=== PATIENT | male | born 1960 | race Caucasian/White ===

== ENCOUNTER 2020-06-08 01:10 | Emergency (ER) | payer BC, SELFPAY ==
[2020-06-08] VITALS (8 sets, daily range): BP systolic 104–153; BP diastolic 62–80; PULSE 80–100; RESP 16; TEMP 36.5; O2SAT 91–99
--- NOTE | ~2020-06-08 | CT_ITS ---
EXAMINATION: CT abdomen pelvis w con DATE: 06/08/2020 02:40 INDICATION: Epigastric abdominal pain. TECHNIQUE: Computed tomography (CT) of the abdomen and pelvis was performed with 100 mL Omnipaque 350 intravenous contrast. Automated exposure control and iterative reconstruction technique were employe d. The dose-length product was 743.49 mGy-cm. COMPARISON: CT abdomen and pelvis 02/14/2012 FINDINGS: The visualized portions of the lung bases demonstrate mild atelectasis. No pleural effusion . The heart size is normal. No pericardial effusion. There is diffuse hepatic steatosis. The gallblad rl and spleen are normal. There is fat stranding around the uncinate process of the pancreas, consis tent with acute interstitial pancreatitis. The adrenal glands are normal. There are cysts in the kidn eys measuring up to 4.0 cm on the left. There are 1 mm and 3 mm stones in right kidney. There are arun roximately 7 stones in left kidney measuring up to 7 mm. There are no dilated loops of bowel. The arun endix is normal. There are no pathologically enlarged lymph nodes. There is no free intraperitoneal f luid. 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 There is mild thoracolumbar spondylosis. IMPRESSION: 1. Acute interstitial pancreatitis. 2. Bilateral nonobstructing kidney stones. 3. Diffuse hepatic steatosis. Reviewed, dictated and finalized at location A. DENCY PROGRAM COORDINATOR
[2020-06-08] MEDS: ONDANSETRON INJ 4 MG/2 ML VIAL IV PUSH (01:36)
[2020-06-08] MEDS: MORPHINE SULFATE (*CRX) 4 MG/ML INJ IV PUSH (01:36)
[2020-06-08 01:48] LABS: Basophils Percent Auto 0.4 % (0.2-1.2); Eosinophils Absolute Auto 0.2 K/mm3 (0-0.3); Eosinophils Percent Auto 1.5 % (0-4.4); Hematocrit 41.7 % (42.0-52.0); Hemoglobin 14.4 g/dL (14.0-18.0); Immature Granulocyte Absolute 0.03 K/mm3 (0.00-0.031); Immature Granulocyte Percent A 0.3 % (0-0.5); Lymphocytes Absolute Auto 1.35 K/mm3 (0.9-3.2); Lymphocytes Percent Auto 12.3 % (18.3-44.2); Mean Corpuscular HGB Conc 34.5 g/dl (32-36); Mean Corpuscular Hemoglobin 32.5 pg (26-34); Mean Corpuscular Volume 94.1 fl (80-100); Mean Platelet Volume 10.4 fl (7.4-10.4); Monocytes Percent Auto 8.7 % (2.6-8.5); Neutrophils Absolute Auto 8.4 K/mm3 (1.3-6.7); Neutrophils Percent Auto 76.8 % (45.5-73.1); Platelet Count Result 214 k/mm3 (150-375); Red Blood Count 4.43 M/mm3 (4.6-6.20); Red Cell Distribution Width 12.1 % (11.5-14.5)
[2020-06-08 01:59] LABS: Alanine Aminotransferase 33 U/L (4-50); Albumin Level 4.3 g/dL (3.5-5.1); Alkaline Phosphatase 73 U/L (38-126); Anion Gap 4 mmol/L (8-16); Aspartate Amino Transferase 27 U/L (17-59); Bilirubin,Total 0.6 mg/dL (0.2-1.3); Blood Urea Nitrogen 17 mg/dL (9-20); Calcium 9.7 mg/dL (8.4-10.2); Carbon Dioxide 28 mmol/L (22-30); Chloride 104 mmol/L (98-107); Estimated CRCL calculation 89 ml/min; Estimated Glomerular Filt Rate > 60; Glucose 141 mg/dL (75-110); Lipase 348 U/L (23-300); Potassium 4.1 mmol/L (3.4-5.0); Sodium 136 mmol/L (137-145)
--- NOTE | 2020-06-08 02:28 | PC.NURSE ---
Patient being taken to CT.
[2020-06-08 02:35] LABS: Add Urine Microscopic? YES; Appearance Urine Clear (Clear); Bilirubin Urine Negative (Negative); Blood Urine Negative (Negative); Color Urine Yellow (Yellow); Glucose Urine UA Negative (Negative); Ketones Urine Negative (Negative); Leukocyte Esterase Ur Negative LEU/UL (Negative); Mucus Urine Rare /lpf; Nitrate Urine Negative (Negative); Protein Urine 1+ mg/dL (Negative); RBC Urine 0-2 /hpf (0-2); Specific Grav Ur 1.024 (1.001-1.035); Urobilinogen Urine Negative mg/dL (<2.0); WBC Urine 0-3 /hpf
--- NOTE | 2020-06-08 02:52 | ED.GENADULT ---
HPI - General Adult General Chief complaint: Abdominal Pain Stated complaint: abdominal and back pain Time Seen by Provider: 06/08/20 01:23 History of Present Illness HPI narrative: Patient is a 60-year-old male who presents ER with abdominal pain. Worsening over the last 2 days. Located in the upper abdomen and radiates throughout. No diarrhea or fevers. No previous history of diverticulitis. Reports some nausea but no vomiting. Reports he had a beer a couple days ago but no alcohol abuse. Originally denied pancreatitis per chart review shows he has had pancreatitis in the past. No alleviating factors. Reports he takes diclofenac for knee pain that is chronic. Related Data Home Medications Medication Instructions Recorded Confirmed ascorbate calcium (vitamin C) 500 mg PO DAILY 06/08/20 diclofenac sodium PO 06/08/20 lisinopril 06/08/20 [id number] 1 tablet PO DAILY 06/08/20 [Centrum Silver] oxybutynin chloride 06/08/20 rosuvastatin mg 06/08/20 sildenafil 100 mg PO DAILY 06/08/20 Allergies Allergy/AdvReac Type Severity Reaction Status Date / Time gramicidin D Allergy Mild Itching Verified 06/08/20 01:26 neomycin Allergy Mild Itching Verified 06/08/20 01:26 polymyxin B Allergy Mild Itching Verified 06/08/20 01:26 Review of Systems Review of Systems: All systems reviewed & are unremarkable except as noted in HPI and below Constitutional: Constitutional: Denies chills, Denies fever(s) and Denies weakness ENT: Denies nasal congestion and Denies sore throat Cardiovascular: Cardiovascular: Denies chest pain and Denies radiating jaw, neck or arm pain Gastrointestinal: Gastrointestinal: Reports abdominal pain, Denies diarrhea, Reports nausea and Denies vomiting PMFSH Past Medical History Medical History (Updated 06/08/20 @ 03:58 by Junaid Burden MD) H/O: hypertension Hypercholesterolemia Pancreatitis Surgical History Surgical History (Updated 06/08/20 @ 03:01 by Junaid Burden MD) History of carpal tunnel repair History of repair of rotator cuff Social History Social History (Updated 06/08/20 @ 03:01 by Junaid Burden MD) Alcohol intake: current Exam Narrative: Exam Narrative: GENERAL: Well-appearing, well-nourished, and in no acute distress. HEAD: Normocephalic, atraumatic. CHEST: Clear to auscultation. No respiratory distress. HEART: Regular rate and rhythm. Normal peripheral pulses. ABDOMEN: Soft, diffusely tender worse in the epigastrium right upper quadrant, nondistended. EXTREMITIES: Normal range of motion. No edema. SKIN: Warm, dry, no rash. NEURO: Alert and oriented x3. PSYCH: Normal mood and affect. Course Course Emergency Course: Pain resolved with morphine. Discussed diagnosis of duodenitis versus pancreatitis. Recommend cessation of alcohol. Will start on PPI. Discussed patient also stopped his diclofenac as it may be causing the duodenitis could potentiate ulcer formation or worse case perforation. Vital Signs Vital signs: Vital Signs Temperature 97.7 F 06/08/20 01:15 Pulse Rate 100 06/08/20 01:15 Respiratory Rate 16 06/08/20 01:15 Blood Pressure 153/80 H 06/08/20 01:15 Pulse Oximetry 99 06/08/20 01:15 Temperature 97.7 F 06/08/20 01:15 Pulse Rate 100 06/08/20 01:15 Respiratory Rate 16 06/08/20 01:15 Blood Pressure 113/72 06/08/20 02:02 Pulse Oximetry 91 06/08/20 02:16 Medical Decision Making Vital Signs Vital Signs: Vital Signs Temperature 97.7 F 06/08/20 01:15 Pulse Rate 100 06/08/20 01:15 Respiratory Rate 16 06/08/20 01:15 Blood Pressure 153/80 H 06/08/20 01:15 Pulse Oximetry 99 06/08/20 01:15 Temperature 97.7 F 06/08/20 01:15 Pulse Rate 100 06/08/20 01:15 Respiratory Rate 16 06/08/20 01:15 Blood Pressure 113/72 06/08/20 02:02 Pulse Oximetry 91 06/08/20 02:16 Lab Data Result diagrams: 06/08/20 01:36 06/08/20 01:36
== END 2020-06-08 04:16 | disposition home or self-care (01) ==
PROVIDERS: Emergency Provider Emergency Medicine; PCP Family Medicine Adolescent Medicine
DX: K29.80 Duodenitis without bleeding (principal); K85.90 Acute pancreatitis without necrosis or infection, unspecified; I10 Essential (primary) hypertension; E78.00 Pure hypercholesterolemia, unspecified
CPT/HCPCS: 36415; 74177; 80053; 81001; 83690; 85025; 96374; 96375; 99284; J2270; J2405; Q9967

== ENCOUNTER 2021-06-07 11:14 | Emergency (ER) | payer BC, SELFPAY ==
[2021-06-07 11:24] VITALS: BP 150/83; PULSE 99; RESP 16; TEMP 36.4; O2SAT 98
--- NOTE | 2021-06-07 11:51 | ED.BACK ---
HPI - Back Pain/Injury General Chief Complaint: Back Pain/Injury Stated Complaint: Work Note Time Seen by Provider: 06/07/21 11:51 Source: patient, RN notes reviewed and old records reviewed Mode of arrival: ambulatory Limitations: no limitations History of Present Illness HPI Narrative: 61-year-old male presents to the [facility] requesting a return to work note. States that he called in sick to work on Monday due to tweaking his back. Denies any loss or retention of bowel or bladder. No longer in pain. Denies any numbness and tingling in extremities. Walks with a normal gait. MD elicited complaint: back pain Related Data Home Medications Medication Instructions Recorded Confirmed diclofenac sodium 75 mg PO DAILY 06/08/20 06/07/21 lisinopril 20 mg PO DAILY 06/08/20 06/07/21 rosuvastatin 10 mg PO DAILY 06/08/20 06/07/21 Allergies Allergy/AdvReac Type Severity Reaction Status Date / Time gramicidin D Allergy Mild Itching Verified 06/07/21 11:56 neomycin Allergy Mild Itching Verified 06/07/21 11:56 polymyxin B Allergy Mild Itching Verified 06/07/21 11:56 Review of Systems Review of Systems: All systems reviewed & are unremarkable except as noted in HPI and below Constitutional: Constitutional: Reports no additional constitutional complaints, Denies chills and Denies fever(s) Cardiovascular: Cardiovascular: Reports no additional cardiovascular complaints Respiratory: Respiratory: Reports no additional respiratory complaints Gastrointestinal: Gastrointestinal: Reports no additional gastrointestinal complaints Musculoskeletal: Musculoskeletal: Reports as per HPI and Reports back pain Integumentary/Breasts: Skin/Breast: Reports system reviewed and no additional complaints, except as docu Neurologic: Reports system reviewed and no additional complaints, except as documented Psychiatric: Psychiatric: Reports no additional psychiatric complaints Allergic/Immunologic: Allergic/Immunologic: Reports no additional allergic/immunologic complaints [facility] Past Medical History Medical History (Updated 06/07/21 @ 11:57 by Naila Morrissey) H/O: hypertension Hypercholesterolemia Pancreatitis Surgical History Surgical History History of carpal tunnel repair History of repair of rotator cuff Social History Social History (Updated 06/07/21 @ 14:53 by Naila Morrissey) Alcohol intake: current Occupation/Education: occupation Additional occupation/education comments: [employer] Gender identity (if verbalized by the patient): Male Comments At the time of my signature, I reviewed and agree with the nursing past medical, surgical, social, and family history. There is no relevant family history pertinent to the patient complaint. Exam Const: General: healthy appearing, no acute distress and alert Nutritional Appearance: well nourished Orientation/consciousness: patient oriented x3 Limitations: no limitations HENMT: Head: normal to inspection Ears: external ears normal Eyes: Pupils: Equal, round and reactive pupils present Neck: Neck: normal visual inspection Chest: Chest palpation & inspection: normal inspection of the chest Resp: Effort & Inspection: normal respiratory effort Cardio: Rate: regular rate Skin: General skin exam: normal color Rashes: no rashes Neuro: General: patient oriented x3, moves all extremities, no meningeal signs and no focal motor deficits Speech: normal speech Gait exam (Neuro): Normal gait present Extrem: General: normal to inspection and no pedal edema Psych: Appearance: grossly normal and well kempt Mental Status: mental status grossly normal Affect: normal affect Attitude: cooperative Thought content: Yes Normal thought content present Course Course Emergency Course: Discharge instructions reviewed with patient, as well as provided in writing per nursing staff. The instructions also include specific and st
== END 2021-06-07 12:00 | disposition home or self-care (01) ==
PROVIDERS: Emergency Provider Nurse Practitioner; PCP Family Medicine Adolescent Medicine
DX: M54.9 Dorsalgia, unspecified (principal); I10 Essential (primary) hypertension
CPT/HCPCS: 99212; G0463

== ENCOUNTER 2023-07-14 00:33 | Day surgery (SDC) | payer BC, SELFPAY ==
[2023-06-20 11:39] VITALS: BMI 29.2
--- NOTE | 2023-07-12 09:10 | SUR.PREOP ---
Patient called regarding upcoming procedure. Reviewed preop instructions, appointment times, and procedure prep.
[2023-07-14 12:12] VITALS: BP 154/104; PULSE 84; RESP 20; TEMP 36.6; O2SAT 99
--- NOTE | 2023-07-14 12:21 | WPDANESEPPF ---
Anes - Initial Pre Proc Eval Procedure: Operation Date: 07/14/23 13:30 Proposed Procedures p Colonoscopy - Dani Bentley MD Date/Time: 07/14/23 12:21 Surgeon: Dani Bentley MD Pre Op Diagnosis: fam hx of neoplasm digestive organs Patient Data Age: 63 Gender: M Height: 1.77 m Weight: 91.1 kg Last Vital Signs Temp 98 F 07/14/23 12:12 Pulse 84 07/14/23 12:12 Resp 20 07/14/23 12:12 BP 154/104 H 07/14/23 12:12 Pulse Ox 99 07/14/23 12:12 O2 Del Method Room Air 07/14/23 12:12 Allergies Allergy/AdvReac Type Severity Reaction Status Date / Time gramicidin D Allergy Mild Itching Verified 07/14/23 12:11 neomycin Allergy Mild Itching Verified 07/14/23 12:11 polymyxin B Allergy Mild Itching Verified 07/14/23 12:11 Home Medications Medication Instructions Recorded Confirmed Type ascorbate calcium (vitamin C) 500 500 mg PO DAILY 05/09/22 06/20/23 History mg tablet cholecalciferol (vitamin D3) 25 25 mcg PO DAILY 05/09/22 06/20/23 History mcg (1,000 unit) capsule multivitamin 1 tablet PO DAILY 05/09/22 06/20/23 History vitamin B complex (B 1 tablet PO DAILY 05/09/22 06/20/23 History Complex-Vitamin B12 tablet) diclofenac sodium 75 mg See Rx Instructions .Route 03/27/23 06/20/23 Rx tablet,delayed release .COMPLEX #180 tabs lisinopril 20 mg tablet See Rx Instructions .Route 04/28/23 06/20/23 Rx .COMPLEX #90 tabs rosuvastatin 20 mg tablet 20 mg PO DAILY #90 tabs 05/17/23 06/20/23 Rx Patient hx anesthesia problems: none Family hx anesthesia problems: none Results Review: All pre-operative results and documents have been reviewed as part of the pre-operative evaluation. [facility] Past Medical History Medical History (Updated 05/15/23 @ 09:20 by Olvin Jane MD) H/O: hypertension Hypercholesterolemia Pancreatitis Personal history of malignant neoplasm of prostate (2012) Surgical History Surgical History (Updated 05/05/22 @ 07:08 by Olvin Jane MD) History of carpal tunnel repair History of radical prostatectomy (2012) History of repair of rotator cuff (2002) Social History Social History (Updated 06/07/21 @ 14:53 by Naila Morrissey APRN) Smoking status: Former smoker Tobacco type: cigarettes Alcohol intake: current Alcohol use details: occasional Substance use: never Substance use type: does not use Living arrangements: with family Occupation/Education: occupation Additional occupation/education comments: [employer] Gender identity (if verbalized by the patient): Male Spiritual care concerns: No Anes - Eval Final PreProcedure Day of Procedure 07/14/23 12:21 Patient weight: obese Airway: Mallampati scale class II ASA classification: III Anesthesia type and monitoring: general GIVS and standard monitoring Results Review: All pre-operative results and documents have been reviewed as part of the pre-operative evaluation. Informed Consent: The patient's anesthetic plan and its attendant risks and benefits were discussed with the patient/family/POA. Questions were solicited and answers provided to the satisfaction of the patient/family/POA.
[2023-07-14] MEDS: LACTATED RINGERS 1,000 ML 150 ML IV CONT (12:33)
--- NOTE | 2023-07-14 12:37 | PM.HPGS ---
History of Present Illness History of Present Illness Consent: Risks, benefits, and alternatives have been discussed and questions answered. Patient agrees to proceed with procedure. Chief complaint: fam hx of neoplasm digestive organs Narrative: Travis Rm is a 63 year old male here for screening colonoscopy, last one about 11 years ago Review of Systems Constitutional: Constitutional: Denies headache(s) and Denies weakness Eyes: Eyes: Denies blurry vision ENT: Reports Normal hearing present, Denies headache(s) and Denies neck pain Cardiovascular: Cardiovascular: Denies chest pain and Denies dyspnea Respiratory: Respiratory: Denies dyspnea Gastrointestinal: Gastrointestinal: Reports no additional gastrointestinal complaints Genitourinary: Genitourinary: Denies dysuria Musculoskeletal: Musculoskeletal: Denies neck pain Integumentary/Breasts: Skin/Breast: Denies dry skin Neurologic: Reports Normal hearing present, Denies headache(s) and Denies weakness Psychiatric: Psychiatric: Denies anxiety Endocrine: Endocrine: Denies change in body appearance Hematologic/Lymphatic: Hematologic/Lymphatic: Denies easy bleeding Allergic/Immunologic: Allergic/Immunologic: Denies urticaria PMFSH Past Medical History Medical History (Updated 07/14/23 @ 12:37 by Dani Bentley MD) Colon cancer screening H/O: hypertension Hypercholesterolemia Pancreatitis Personal history of malignant neoplasm of prostate (2012) Surgical History Surgical History (Updated 05/05/22 @ 07:08 by Olvin Jane MD) History of carpal tunnel repair History of radical prostatectomy (2012) History of repair of rotator cuff (2002) Social History Social History (Updated 06/07/21 @ 14:53 by Naila Morrissey APRN) Smoking status: Former smoker Tobacco type: cigarettes Alcohol intake: current Alcohol use details: occasional Substance use: never Substance use type: does not use Living arrangements: with family Occupation/Education: occupation Additional occupation/education comments: [employer] Gender identity (if verbalized by the patient): Male Spiritual care concerns: No Meds Home Medications and Allergies Home Medications Medication Instructions Recorded Confirmed Type ascorbate calcium (vitamin C) 500 500 mg PO DAILY 05/09/22 06/20/23 History mg tablet cholecalciferol (vitamin D3) 25 25 mcg PO DAILY 05/09/22 06/20/23 History mcg (1,000 unit) capsule multivitamin 1 tablet PO DAILY 05/09/22 06/20/23 History vitamin B complex (B 1 tablet PO DAILY 05/09/22 06/20/23 History Complex-Vitamin B12 tablet) diclofenac sodium 75 mg See Rx Instructions .Route 03/27/23 06/20/23 Rx tablet,delayed release .COMPLEX #180 tabs lisinopril 20 mg tablet See Rx Instructions .Route 04/28/23 06/20/23 Rx .COMPLEX #90 tabs rosuvastatin 20 mg tablet 20 mg PO DAILY #90 tabs 05/17/23 06/20/23 Rx Allergies Allergy/AdvReac Type Severity Reaction Status Date / Time gramicidin D Allergy Mild Itching Verified 07/14/23 12:11 neomycin Allergy Mild Itching Verified 07/14/23 12:11 polymyxin B Allergy Mild Itching Verified 07/14/23 12:11 Vital Signs Vital Signs - 24 hr 07/14/23 12:12 Temperature 98 F Pulse Rate 84 Respiratory Rate 20 Blood Pressure 154/104 H Pulse Oximetry 99 Oxygen Delivery Room Air Exam Const: General: comfortable and no acute distress HENMT: Face/Nose/Sinus: Normal nares present Eyes: General: appearance normal, both eyes and all related structures Neck: Neck: no JVD Resp: Auscultation: clear to auscultation bilaterally Cardio: Rate: regular rate Rhythm: regular rhythm GI: Inspection: non-distended GI Palp: Yes Soft to palpation Skin: General skin exam: normal color Neuro: General: gait normal Speech: normal speech Extrem: General: normal to inspection Psych: Mental Status: mental status grossly normal Assessment and Plan Assessme
[2023-07-14 12:55] VITALS: BP 106/85; PULSE 80; RESP 20; O2SAT 96
[2023-07-14 13:05] VITALS: BP 124/68; PULSE 70; RESP 20; O2SAT 97
[2023-07-14 13:15] VITALS: BP 133/85; PULSE 72; RESP 20; O2SAT 98
== END 2023-07-14 13:27 | disposition home or self-care (01) ==
PROVIDERS: PCP Family Medicine Adolescent Medicine; Visit Provider Internal Medicine Gastroenterology
PROC: 0DJD8ZZ Inspection of Lower Intestinal Tract, Via Natural or Artificial Opening Endoscopic (ICD-10-PCS; CPT 45378; principal; 2023-07-14 13:30)
DX: Z12.11 Encounter for screening for malignant neoplasm of colon (principal); Z80.0 Family history of malignant neoplasm of digestive organs; K57.30 Diverticulosis of large intestine without perforation or abscess without bleeding; I10 Essential (primary) hypertension; E78.00 Pure hypercholesterolemia, unspecified; Z85.46 Personal history of malignant neoplasm of prostate; Z87.891 Personal history of nicotine dependence
CPT/HCPCS: 45378; J2704; J7120

== ENCOUNTER 2024-05-21 12:12 | Outpatient (CLI) | payer BC, SELFPAY ==
--- NOTE | ~2024-05-21 | XR_ITS ---
EXAMINATION: XR knee LT 3V DATE: 05/21/2024 12:26 INDICATION: Unilateral primary osteoarthritis, left knee. TECHNIQUE: 3 views of left knee including standing views were obtained. COMPARISON: Left knee radiographs 06/08/2018 FINDINGS: Alignment is normal. No fracture. There is moderate osteoarthritis of medial compartment an d mild osteoarthritis of lateral and patellofemoral compartments. No knee joint effusion. IMPRESSION: 1. Moderate left knee osteoarthritis. Reviewed, dictated and finalized at location A. ARCH STUDY ASSISTANT
== END 2024-05-21 12:13 | disposition home or self-care (01) ==
PROVIDERS: PCP Family Medicine Adolescent Medicine; Visit Provider Family Medicine Adolescent Medicine
DX: M17.12 Unilateral primary osteoarthritis, left knee (principal)
CPT/HCPCS: 73562